=== PATIENT | female | born 1980 | race Caucasian/White ===

== ENCOUNTER → 2023-11-05 07:48 | Outpatient (CLI) | payer BC, SELFPAY ==
--- NOTE | ~2023-11-05 | MMUS_ITS ---
EXAMINATION: MM diag hiwot implant BI w [place], US breast LT limited HISTORY: Lower inner quadrant left breast lump for 4 weeks TECHNIQUE: Implant displaced ML, MLO and CC 3-D tomosynthesis images of both breasts were performed a nd synthetic 2-D images were generated. Implant ML, MLO and CC views. CAD analysis was submitted and interpreted. High resolution lower inner quadrant left breast ultrasound was performed. COMPARISON: None BREAST PARENCHYMAL COMPOSITION: There are scattered areas of fibroglandular density. FINDINGS: MAMMOGRAPHIC FINDINGS: Status post bilateral augmentation mammoplasty. No suspicious mass or architectural distortion, malignant calcification, skin thickening or retractio n is detected. ULTRASOUND: . No suspicious mass, shadowing or other significant sonographic abnormality is detected in the lower inner quadrant of the left breast. IMPRESSION: 1. No mammographic or sonographic evidence of malignancy 2. Routine mammographic screening is recommended. BI-RADS Category 1: Negative Reviewed, dictated and finalized at location A. 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 No mammographic or sonographic evidence of malignancy 2. Routine mammographic screening is recommended. BI-RADS Category 1: Negative
== END ==
PROVIDERS: PCP Physician Assistant; Visit Provider Obstetrics & Gynecology
DX: N63.24 Unspecified lump in the left breast, lower inner quadrant (principal)
CPT/HCPCS: 76642; 77062; 77066; G0279

== ENCOUNTER 2024-02-15 13:45 | Outpatient (CLI) | payer BC, SELFPAY ==
--- NOTE | ~2024-02-15 | US_ITS ---
EXAMINATION: US transvaginal DATE: 02/15/2024 14:14 INDICATION: Irregular menstruation TECHNIQUE: Multiple transabdominal and endovaginal sonographic images of the pelvis were obtained. COMPARISON: None. FINDINGS: The uterus measures 8.1 x 4.2 x 4.9 cm. The endometrial complex measures 5 mm in thickness. The righ t ovary measures 3.5 x 2.3 x 2.6 cm. The left ovary measures 2.5 x 2.4 x 2 point cm. After flow ident ified in both ovaries on color Doppler. There is no free fluid in the pelvis. IMPRESSION: 1. Normal pelvic ultrasound. Reviewed, dictated and finalized at location A.
== END 2024-02-15 13:46 ==
PROVIDERS: PCP Obstetrics & Gynecology
DX: N92.6 Irregular menstruation, unspecified (principal)
CPT/HCPCS: 76830

== ENCOUNTER 2024-02-24 11:03 | Outpatient (CLI) | payer BC, SELFPAY ==
[2024-02-24 11:33] LABS: Basophils Absolute Auto 0.1 K/mm3 (0.0-0.1); Basophils Percent Auto 0.8 % (0.2-1.2); Eosinophils Absolute Auto 0.1 K/mm3 (0-0.3); Eosinophils Percent Auto 1.2 % (0-4.4); Hematocrit 41.7 % (37.0-47.0); Hemoglobin 13.3 g/dL (12.0-15.0); Immature Granulocyte Absolute 0.03 K/mm3 (0.00-0.031); Immature Granulocyte Percent A 0.4 % (0-0.5); Lymphocytes Absolute Auto 1.53 K/mm3 (0.9-3.2); Lymphocytes Percent Auto 20.2 % (18.3-44.2); Mean Corpuscular HGB Conc 31.9 g/dl (32-36); Mean Corpuscular Hemoglobin 27.2 pg (26-34); Mean Corpuscular Volume 85.3 fl (80-100); Mean Platelet Volume 9.3 fl (7.4-10.4); Monocytes Absolute Auto 0.6 K/mm3 (0.1-0.6); Monocytes Percent Auto 7.7 % (2.6-8.5); Neutrophils Absolute Auto 5.3 K/mm3 (1.3-6.7); Neutrophils Percent Auto 69.7 % (45.5-73.1); Platelet Count Result 322 k/mm3 (150-375); Red Blood Count 4.89 M/mm3 (4.2-5.4); Red Cell Distribution Width 14.1 % (11.5-14.5); White Blood Count 7.6 K/mm3 (4.5-10.0)
[2024-02-24 18:57] LABS: Iron 86 ug/dL (37-170)
[2024-02-24 19:06] LABS: Alanine Aminotransferase 24 U/L (6-35); Albumin Level 4.2 g/dL (3.5-5.1); Alkaline Phosphatase 42 U/L (38-126); Anion Gap 6 mmol/L (4-12); Aspartate Amino Transferase 23 U/L (14-36); Bilirubin,Total 0.6 mg/dL (0.2-1.3); Blood Urea Nitrogen 12 mg/dL (7-17); Calcium 9.4 mg/dL (8.4-10.2); Carbon Dioxide 26 mmol/L (22-30); Chloride 106 mmol/L (98-107); Estimated Glomerular Filt Rate > 60; Glucose 96 mg/dL (65-110); Lactate Dehydrogenase 165 U/L (120-246); Potassium 4.1 mmol/L (3.4-5.0); Sodium 138 mmol/L (137-145)
[2024-02-24 19:07] LABS: Percent Iron Saturation 26 % (20-50)
[2024-02-24 19:38] LABS: Thyroid Stimulating Hormone 0.423 uIU/mL (0.465-4.680)
[2024-02-24 20:18] LABS: Folic Acid > 20.0 ng/mL (2.76->20)
[2024-02-24 21:17] LABS: Vitamin D 25 Hydroxy 73.2 ng/mL
[2024-02-28 08:53] LABS: Methylmalonic Acid 90 nmol/L (87-318)
[2024-03-02 11:53] LABS: Soluble Transferrin Receptor 1.16 mg/L (0.76-1.76)
== END 2024-02-24 11:04 | disposition home or self-care (01) ==
LOC: ANHLAB 11:06
PROVIDERS: Nurse Practitioner Family; PCP Physician Assistant; Visit Provider Internal Medicine Hematology & Oncology
DX: D50.0 Iron deficiency anemia secondary to blood loss (chronic) (principal); E55.9 Vitamin D deficiency, unspecified
CPT/HCPCS: 36415; 80053; 82306; 82607; 82728; 82746; 83540; 83550; 83615; 83921; 84238; 84443; 85025

== ENCOUNTER 2024-06-05 19:41 | Emergency (ER) | payer OTHER, BC, SELFPAY ==
--- NOTE | ~2024-06-05 | XR_ITS ---
Left Knee Technique: AP, lateral, and oblique views were obtained. Clinical History: Pain Findings: No fracture or dislocation is seen. Osseous alignment is anatomic. Joint spaces are preserv ed without degenerative or erosive change. Soft tissues are unremarkable. No joint effusion is seen. Impression: Unremarkable left knee radiographs. Reviewed, dictated and finalized at location . Impression: Unremarkable left knee radiographs.
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
[2024-06-06 01:43] VITALS: BP 139/84; PULSE 86; RESP 16; TEMP 36.6; O2SAT 100
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
[2024-06-06] MEDS: HYDROcodone/acetaminophen (*CRX) 7.5-325 MG TABLET 1 TAB PO (01:53)
[2024-06-06] MEDS: IBUPROFEN 400 MG TABLET 800 MG PO (01:53)
== END 2024-06-06 02:49 | disposition home or self-care (01) ==
LOC: ANHED 06-06 02:32
PROVIDERS: Emergency Provider Student in an Organized Health Care Education/Training Program; PCP Physician Assistant
DX: M25.532 Pain in left wrist (principal); M25.562 Pain in left knee; S93.402A Sprain of unspecified ligament of left ankle, initial encounter; V43.52XA Car driver injured in collision with other type car in traffic accident, initial encounter
CPT/HCPCS: 29125; 73110; 73562; 73590; 73600; 99284; A9270

== ENCOUNTER 2024-06-21 09:19 | Outpatient (CLI) | payer BC, SELFPAY ==
--- NOTE | ~2024-06-21 | US_ITS ---
LEFT LOWER EXTREMITY VENOUS ULTRASOUND Ordering provider: Lsiy Hope History: . LLE PAIN AND SWELLING . Comparison: None FINDINGS: --COMMON FEMORAL: Patent and free of thrombus. Normal compressibility, phasic flow and augmentation. --PROXIMAL SUPERFICIAL FEMORAL: Patent and free of thrombus. Normal compressibility, phasic flow and augmentation. --DISTAL SUPERFICIAL FEMORAL: Patent and free of thrombus. Normal compressibility, phasic flow and au gmentation. --POPLITEAL: Patent and free of thrombus. Normal compressibility, phasic flow and augmentation. --POSTERIOR TIBIAL: Patent and free of thrombus. Normal compressibility, phasic flow and augmentation . IMPRESSION: Negative left lower extremity venous US. No deep vein thrombosis. Reviewed, dictated and finalized at location A.
== END 2024-06-21 09:20 | disposition home or self-care (01) ==
PROVIDERS: PCP Physician Assistant
DX: M79.89 Other specified soft tissue disorders (principal)
CPT/HCPCS: 93971

== ENCOUNTER 2025-08-31 08:03 | Outpatient (CLI) | payer OTHER, SELFPAY ==
--- NOTE | ~2025-08-31 | MMUS_ITS ---
EXAMINATION: MM diagnostic mammogram BI w [facility], US axilla right HISTORY: Palpable abnormality right axilla TECHNIQUE: Craniocaudal and mediolateral oblique 3-D tomosynthesis images were obtained and synthetic 2-D images were generated. CAD analysis was submitted and interpreted. Grayscale sonography over the area(s) of interest with color Doppler if there is a finding. COMPARISON: 2023 BREAST PARENCHYMAL COMPOSITION: Not Dense: There are scattered areas of fibroglandular MAMMOGRAM FINDINGS: There is/are retropectoral silicone implants. The presence of implants decreases the sensitivity of mammography. No suspicious masses are seen. In the area of palpable concern, there is only lucency, with suggestion of a lucent mass. There are no suspicious calcifications. No unexplained architectural distortion is seen. There are no skin or nipple abnormalities identified. There is no adenopathy seen on the images submitted. ULTRASOUND FINDINGS: Sonography through the palpable area demonstrates the presence of a circumscribed, ovoid, isoechoic to hypoechoic mass with a maximum dimension of 2.1 cm. It is very superficial in location, just under the skin layer. There are a few echogenic striations. IMPRESSION: The ultrasound findings coupled with the mammogram findings are consistent with a lipoma. No mammographic evidence to suggest malignancy is seen. The patient may return to screening mammography as per ACR guidelines. BI-RADS 2 - Benign. Reviewed, dictated and finalized at location B. 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 No mammographic evidence to suggest malignancy is seen. The patient may return to screening mammography as per ACR guidelines. BI-RADS 2 - Benign.
== END 2025-08-31 08:04 | disposition home or self-care (01) ==
LOC: MICIMG 08:04
PROVIDERS: PCP Physician Assistant; Visit Provider Physician Assistant
DX: N63.0 Unspecified lump in unspecified breast (principal); R22.31 Localized swelling, mass and lump, right upper limb
CPT/HCPCS: 76882; 77062; 77066; G0279